=== PATIENT | male | born 1960 | race Caucasian/White ===

== ENCOUNTER 2019-06-29 14:23 | Emergency (ER) | payer MEDICARE ==
[~2019-06-29] VITALS: Ht 188 cm; Wt 90.0 kg
[~2019-06-29 14:23] MED LIST: BACTRIM DS1 TAB PO; CEPHALEXIN500 MG OR; CEPHALEXIN500 MG PO; NO; NORCO1 TA1 PO
[2019-06-29 15:21] LABS: URINE BILIRUBIN - DIPSTICK NEGATIVE (NEGATIVE); URINE BLOOD DIPSTICK LARGE (NEGATIVE); URINE COLOR YELLOW; URINE GLUCOSE - DIPSTICK NEGATIVE (NEGATIVE); URINE KETONE NEGATIVE (NEGATIVE); URINE PROTEIN - DIPSTICK 100 mg/dL (NEG-TRACE); URINE SPECIFIC GRAVITY >=1.030
[2019-06-29 15:29] LABS: URINE LEUK ESTERASE MODERATE (NEGATIVE); URINE NITRITE - DIPSTICK POSITIVE (Negative)
[2019-06-29 15:31] LABS: URINE BACTERIA FEW hpf; URINE RBC TNTC RBC/hpf (0-5); URINE SQUAMOUS EPITHELIAL CELL FEW EPI/hpf (0-FEW)
[2019-06-29] MEDS ORDERED: KEFLEX500 M1 PO (15:48)
[2019-06-29 15:57] VITALS: BP 142/78
== END 2019-06-29 15:57 | disposition home or self-care (01) ==
LOC: ED 14:23
PROVIDERS: Emergency Medicine
DX: N39.0 Urinary tract infection, site not specified (principal); B96.20 Unspecified Escherichia coli [E. coli] as the cause of diseases classified elsewhere

== ENCOUNTER 2019-09-01 16:58 | Emergency (ER) | payer MEDICARE ==
[~2019-09-01] VITALS: Ht 188 cm; Wt 82.0 kg
[~2019-09-01 16:58] MED LIST changes: +KEFLEX500 M1 PO
[2019-09-01] MEDS ORDERED: CEPHALEXIN500 MG PO (19:09)
[2019-09-01] MEDS ORDERED: BACTRIM DS1 TAB PO (19:09)
[2019-09-01 19:20] VITALS: BP 129/74
== END 2019-09-01 19:20 | disposition home or self-care (01) ==
LOC: ED 16:58
DX: L01.00 Impetigo, unspecified (principal); F17.210 Nicotine dependence, cigarettes, uncomplicated; B95.1 Streptococcus, group B, as the cause of diseases classified elsewhere

== ENCOUNTER 2019-11-25 | Emergency (ER) | payer MEDICARE ==
[2019-11-25] MEDS ORDERED: ZPAK PO (15:13)
[2019-11-25] MEDS ORDERED: ACETAMINOP160 MG/5 M PO (15:13)
[2019-11-25 15:57] LABS: URINE BLOOD DIPSTICK TRACE-INTACT (NEGATIVE); URINE COLOR YELLOW; URINE GLUCOSE - DIPSTICK NEGATIVE (NEGATIVE); URINE KETONE TRACE mg/dL (NEGATIVE); URINE LEUK ESTERASE NEGATIVE (NEGATIVE); URINE NITRITE - DIPSTICK NEGATIVE (Negative); URINE PROTEIN - DIPSTICK 30 mg/dL (NEG-TRACE); URINE SPECIFIC GRAVITY >=1.030
[2019-11-25 15:59] LABS: URINE BILIRUBIN - DIPSTICK SMALL (NEGATIVE)
[2019-11-25 16:00] LABS: URINE EPITHELIAL CELLS FEW EPI/hpf (0-FEW); URINE MUCUS MODERATE hpf (NONE-FEW); URINE RBC 0-2 RBC/hpf (0-5)
[2019-11-25 18:21] LABS: BARBITURATES NEGATIVE (NEGATIVE); COCAINE NEGATIVE (NEGATIVE); METHADONE NEGATIVE (NEGATIVE); OXCYCODONE NEGATIVE (NEGATIVE); TETRAHYDROCANNABIONOL NEGATIVE (NEGATIVE); TRICYLIC ANTIDEPRESSANTS NEGATIVE (NEGATIVE)
[2019-11-26] MEDS ORDERED: AMOXICILLIN875 MG PO (11:42)
== END 2019-11-25 18:32 | disposition home or self-care (01) ==
DX: J02.0 Streptococcal pharyngitis (principal); F17.210 Nicotine dependence, cigarettes, uncomplicated; F19.90 Other psychoactive substance use, unspecified, uncomplicated; Z59.0 Homelessness

== ENCOUNTER 2019-12-01 15:55 | Inpatient (IN) | payer MEDICARE ==
[~2019-12-01] VITALS: Ht 188 cm; Wt 79.0 kg
[~2019-12-01 15:55] MED LIST changes: +ACETAMINOP160 MG/5 M PO; +AMOXICILLIN875 MG PO; +ZPAK PO
--- NOTE | 2019-12-01 16:12 | NUR ---
PT TO ROOM PER SULEMAN RUST FOR CONTINKUATION OF CARE PER W/C
[2019-12-01 17:00] LABS: IMMATURE GRANULOCYTES 0.4 % (0.0-5.0); MEAN CORPUSCULAR HGB 31.1 pG CALC (26.0-32.0); MEAN CORPUSCULAR HGB CONC 32.1 g/L CALC (32.0-36.0); NEUT# 4.28 thou/uL (1.82-7.42); RED BLOOD COUNT 3.28 mill/uL (4.70-6.10); RED CELL DISTRI WIDTH 13.4 % (11.5-15.5)
[2019-12-01 17:02] LABS: HEMATOCRIT 31.8 % (39.0-50.0); HEMOGLOBIN 10.2 g/dl (14.0-18.0)
[2019-12-01 17:28] LABS: ALBUMIN 3.6 g/dL (3.2-5.0); ALKALINE PHOSPHATASE 80 u/l (38-126); ANION GAP 13 (6-22 (CALC)); BUN 16 mg/dL (8-23); BUN/CREATININE RATIO 18 (12-20 (CALC)); CARBON DIOXIDE 26 mmol/l (22-30); CHLORIDE 105 mmol/l (95-108); CREATININE 0.9 mg/dL (0.7-1.3); ETHYL ALCOHOL 0 mg/dl (0-30); GFR > 60 ML/MIN (>=60 (CALC)); GFR FOR AFR.AMER. > 60 ML/MIN (>=60 (CALC)); POTASSIUM 4.2 mmol/l (3.5-5.1); SGOT/AST 27 u/l (19-48); SODIUM 140 mmol/l (137-146); TOTAL PROTEIN 7.6 g/dL (6.3-8.2)
[2019-12-01 17:29] LABS: BILIRUBIN, TOTAL 0.2 mg/dL (0.0-1.4)
--- NOTE | 2019-12-01 18:00 | NUR ---
PT RESTING QUIETLY ON STRETCHER, FRIEND AT BEDSIDE, NO DISTRESS NOTED, NO COUGHING HEARD SINCE ARRIVAL. VSS.
--- NOTE | 2019-12-01 18:10 | NUR ---
FRIENDS NUMBER TO [facility] [employer] WHEN DISCHARGED IS [phone] NAME IS JAMILA
--- NOTE | 2019-12-01 19:00 | NUR ---
WAITING FOR ADMISSION BED, PT IS EATING A SANDWICH AND DRINK. NO DISTRESS NOTED.
[2019-12-01 19:40] VITALS: BP 132/81
--- NOTE | 2019-12-01 19:40 | NUR ---
PT ARRIVED TO THE FLOOR VIA STRETCHER ACCOMPANIED BY ED STAFF, PT AMBULATED FROM STRETCHER TO BED. ALERT AND ORIENTED. RESPIRATIONS EVEN AND UNLABORED ON RA. PEDAL PULSES WERE WEAK. PT DENIES ANY PAIN OR DISCOMFORT AT THIS TIME. TELE IN PLACE. PT PROVIDED WITH A DRINK AND SNACK. PT ORIENTED TO ROOM AND CALL [employer]. WILL CONTINUE TO MONITOR.
--- NOTE | 2019-12-01 19:41 | NUR ---
PT REPORT GIVEN AND PT TAKEN TO FLOOR PER STRETCHER.
--- NOTE | 2019-12-01 23:04 | NUR ---
PT RESTING IN BED, NO S/S OF DISTRESS AT THIS TIME. WILL CONTINUE TO MONITOR.
[2019-12-01 23:36] VITALS: BP 122/70
--- NOTE | 2019-12-02 04:05 | NUR ---
PT RESTING IN BED. RESPIRATIONS EVEN AND UNLABORED ON RA. NO S/S OF DISTRESS AT THIS TIME. WILL CONTINUE TO MONITOR.
[2019-12-02 04:34] VITALS: BP 135/76
[2019-12-02 05:42] LABS: HEMATOCRIT 33.6 % (39.0-50.0); HEMOGLOBIN 10.7 g/dl (14.0-18.0); IMMATURE GRANULOCYTES 0.5 % (0.0-5.0); MEAN CELL VOLUME 97.4 fL CALC (80.0-100.0); MEAN CORPUSCULAR HGB CONC 31.8 g/L CALC (32.0-36.0); NEUT# 7.26 thou/uL (1.82-7.42); RED BLOOD COUNT 3.45 mill/uL (4.70-6.10); RED CELL DISTRI WIDTH 13.2 % (11.5-15.5)
[2019-12-02 06:14] LABS: BUN 14 mg/dL (8-23); BUN/CREATININE RATIO 18 (12-20 (CALC)); CARBON DIOXIDE 26 mmol/l (22-30); CHLORIDE 105 mmol/l (95-108); CREATININE 0.8 mg/dL (0.7-1.3); GFR > 60 ML/MIN (>=60 (CALC)); GFR FOR AFR.AMER. > 60 ML/MIN (>=60 (CALC)); SODIUM 138 mmol/l (137-146)
[2019-12-02 06:26] LABS: ANION GAP 12 (6-22 (CALC)); POTASSIUM 5.2 mmol/l (3.5-5.1)
[2019-12-02 08:50] VITALS: BP 121/70
--- NOTE | 2019-12-02 08:50 | NUR ---
ASSESSMENT IS COMPLETED: IV SITE IS FREE FROM REDNESS OR EDEMA. HR IS REG,PULSES ARE STRONG X4, ABD IS SOFT WITH ACTIVE BS, BREATH SOUNDS ARE DIMINISHED , COARSE AND CLEAR, NO DISTRESS NOTED. TELE MONITOR IN PLACE. NO O2 IN PLACE.
--- NOTE | 2019-12-02 12:15 | NUR ---
PT IS RELAXING IN BED WITH NO DISTRESS NTOED. IV SITE IS FREE FROM REDNESS OR EDEMA.
[2019-12-02 12:17] VITALS: BP 125/67
--- NOTE | 2019-12-02 13:00 | NUR ---
PT TRANSPORTED TO HAVE AN CT COMPLETED VIA WC WITH STAFF. IV SITE IS FREE FROM REDNESS OR EDEMA.
[2019-12-02 15:35] VITALS: BP 139/71
--- NOTE | 2019-12-02 16:00 | NUR ---
PT IS RELAXING IN BED WITH NO DISTRESS NTOED. IV SITE IS FREE FROM REDNESS OR EDEMA.
[2019-12-02 19:40] VITALS: BP 134/68
--- NOTE | 2019-12-02 20:00 | NUR ---
PT RESTING IN BED, NO SIGNS OF DISTRESS NOTED, RESP EVEN AND UNLABORED. DISCUSSED POC PT ALERT AND ORIENTED X3, ASSESSMENT COMPLETED. OLDER ADULT SOCIAL WORK SPECIALIST COUGH NOTED. CALL LIGHT IN REACH,CONTINUE TO MONITOR.
--- NOTE | 2019-12-02 20:20 | NUR ---
PT TAKEN DOWN TO RADIOLOGY FOR CT SCAN, TAKEN VIA WHEELCHAIR ACCOMPANIED BY MIXER CRANE OPERATOR.
--- NOTE | 2019-12-02 21:12 | NUR ---
PT RESTING IN BED, ENCOURAGED PT TO USE URINAL TO MEASURE OUTPUT AND OBTAIN SPECIMEN. CALL LIGHT IN REACH,CONTINUE TO MONITOR.
--- NOTE | 2019-12-02 22:27 | NUR ---
PT RESTING IN BED, URINE SPECIMEN OBTAINED FROM URINAL. PT VOICES NO NEEDS OR COMPLAINTS AT THIS TIME. CALL LIGHT IN REACH,CONTINUE TO MONITOR.
--- NOTE | 2019-12-02 23:43 | NUR ---
SOLUMEDROL GIVEN, PT TOLERATED WELL, VOICES NO NEEDS OR COMPLAINTS AT THIS TIME. CALL LIGHT IN REACH,CONTINUE TO MONITOR.
[2019-12-03 00:16] VITALS: BP 121/61
[2019-12-03 00:25] LABS: URINE BILIRUBIN - DIPSTICK NEGATIVE (NEGATIVE); URINE BLOOD DIPSTICK NEGATIVE (NEGATIVE); URINE COLOR YELLOW; URINE GLUCOSE - DIPSTICK NEGATIVE (NEGATIVE); URINE KETONE NEGATIVE (NEGATIVE); URINE LEUK ESTERASE NEGATIVE (NEGATIVE); URINE NITRITE - DIPSTICK NEGATIVE (Negative); URINE PH 5.5 (4.5-8.0); URINE PROTEIN - DIPSTICK NEGATIVE (NEG-TRACE); URINE UROBILINOGEN - DIPSTICK 0.2 E.U./dL (0.2)
[2019-12-03 01:34] LABS: BARBITURATES NEGATIVE (NEGATIVE); COCAINE NEGATIVE (NEGATIVE); METHADONE NEGATIVE (NEGATIVE); OXCYCODONE NEGATIVE (NEGATIVE); TETRAHYDROCANNABIONOL NEGATIVE (NEGATIVE); TRICYLIC ANTIDEPRESSANTS NEGATIVE (NEGATIVE)
--- NOTE | 2019-12-03 03:26 | NUR ---
PT RESTING IN BED, WITH EYES CLOSED, NO SIGNS OF DISTRESS NOTED. CALL LIGHT IN REACH, CONTINUE TO MONITOR.
[2019-12-03 04:51] VITALS: BP 118/67
--- NOTE | 2019-12-03 06:16 | NUR ---
SOLUMEDROL GIVEN, PT VOICES NO NEEDS OR COMPLAINTS, CALL LIGHT IN REACH,CONTINUE TO MONITOR.
--- NOTE | 2019-12-03 07:29 | NUR ---
REPORT RECEIVED FROM URIAH ANGEL. PT SUPINE IN BED. DENIES PAIN. REPORTING OF CONCERNS ENCOURAGED. CALL LIGHT REVIEWED AND IN REACH. PT STATES UNDERSTANDING.
[2019-12-03 08:59] VITALS: BP 119/69
--- NOTE | 2019-12-03 09:58 | NUR ---
PLAN OF CARE REVIEWED WITH PT. INCENTIVE SPIROMETER PROVIDED. PT INSTRUCTED ON USE AND INDICATION. 1000 ML INCENTIVE VOLUME ACHIEVED. GOAL OF 1500 ML SET. INFLUENZA VACCINE DISCUSSED. PT. CONSENT TO VACCINE. ADMINISTERED IN RIGHT DELTOID. PT TOLERATED WELL. CONSENT FOR PNEUMONIA VACCINE DISCUSSED. PT AGREES TO THIS ALSO, PHARMACY NOTIFIED.
--- NOTE | 2019-12-03 14:00 | NUR ---
DR. GIRON IN TO SEE PT. PLAN OF CARE UPDATED. PT STATES UNDERSTANDING.
[2019-12-03 15:40] VITALS: BP 132/65
--- NOTE | 2019-12-03 17:48 | NUR ---
PT SITTING UPRIGHT IN BED. I.S. USE ENCOURAGED. PT STATES UNDERSTANDING.
[2019-12-03 19:06] VITALS: BP 129/59
--- NOTE | 2019-12-03 21:05 | NUR ---
PT MEDICATED ORDERS PROVIDE AND ASSESSMENT COMPLETED AT THIS TIME. NO S/O DISTRESS NOTED. PT DENIES ANY NEEDS AND WAS SLEEPING WHEN I ENTERED, BUT AWOKE TO MY VOICE. PT ENCOUARGED TO CALL NEEDS ARISE. CALL LIGHT W/IN REACH.
[2019-12-04 00:05] VITALS: BP 118/65
--- NOTE | 2019-12-04 02:24 | NUR ---
PT IS SLEEPING, NO S/O DISTRESS NOTED.
[2019-12-04 04:20] VITALS: BP 134/76
[2019-12-04 05:45] LABS: HEMATOCRIT 33.9 % (39.0-50.0); HEMOGLOBIN 10.7 g/dl (14.0-18.0); MEAN CORPUSCULAR HGB 30.9 pG CALC (26.0-32.0); MEAN CORPUSCULAR HGB CONC 31.6 g/L CALC (32.0-36.0); RED BLOOD COUNT 3.46 mill/uL (4.70-6.10); RED CELL DISTRI WIDTH 13.3 % (11.5-15.5)
--- NOTE | 2019-12-04 06:32 | NUR ---
PT MEDICATED ORDERS PROVIDE. PT WAS SLEEPING, BUT AWOKE TO MY VOICE. DENIES ANY OTHER NEEDS AT THIS TIME.
[2019-12-04 08:10] VITALS: BP 139/68
--- NOTE | 2019-12-04 08:10 | NUR ---
ASSESSMENT IS COMPLETED: IV SITE IS FREE FROM REDNESS OR EDEMA. HR IS REG,PULSES ARE STRONG X4, ABD IS SOFT WITH ACTIVE BS. BREATH SOUNDS ARE CLEAR AN DIMINISHED WITH SOME COARSENESS. TELE MONITOR IN PLACE. CONTINUE TO OBSERVE AND MONITOR.
[2019-12-04 10:36] VITALS: BP 159/67
--- NOTE | 2019-12-04 12:30 | NUR ---
PT IS RELAXING IN BED WITH NO DISTRESS NOTED , IV SITE IS FREE FROM REDNESS OR EDEMA. CONTINUE TO OSBERVE AND MONITOR.
[2019-12-04] MEDS ORDERED: ZPAK PO (13:37)
[2019-12-04 14:32] LABS: ALBUMIN 3.3 g/dL (3.2-5.0); ALKALINE PHOSPHATASE 65 u/l (38-126); ANION GAP 11 (6-22 (CALC)); BILIRUBIN, TOTAL 0.2 mg/dL (0.0-1.4); BUN 21 mg/dL (8-23); BUN/CREATININE RATIO 23 (12-20 (CALC)); CARBON DIOXIDE 28 mmol/l (22-30); CHLORIDE 104 mmol/l (95-108); CREATININE 0.9 mg/dL (0.7-1.3); GFR > 60 ML/MIN (>=60 (CALC)); GFR FOR AFR.AMER. > 60 ML/MIN (>=60 (CALC)); POTASSIUM 4.5 mmol/l (3.5-5.1); SGOT/AST 23 u/l (19-48); SODIUM 139 mmol/l (137-146); TOTAL PROTEIN 6.8 g/dL (6.3-8.2)
--- NOTE | 2019-12-04 15:15 | NUR ---
IV SITE DISCONTINUED CATHTER INTACT. NO REDNESS OR EDEMA. DISCHARGE INSTRUCTIONS GIVEN AND VERBALIZED UNDERSTANDING. WITH TEACHING MATERIALS., Discharge instructions given. Patient verbalizes understanding of same. Discharged in stable condition via Wheelchair to Home with family. All belongings sent with pt.
== END 2019-12-04 16:05 | disposition home or self-care (01) | DRG 195 ==
LOC: ED 15:55 → ED-I 17:40 → MS2 17:52 → ED 17:52 → MS2 12-02 14:54
PROVIDERS: Nurse Practitioner Family; ADMIT Internal Medicine; ATTEND Internal Medicine
PROC: 3E02340 Introduction of Influenza Vaccine into Muscle, Percutaneous Approach (ICD-10-PCS; principal; 2019-12-03)
PROC: 3E0234Z Introduction of Serum, Toxoid and Vaccine into Muscle, Percutaneous Approach (ICD-10-PCS; 2019-12-03)
DX: J18.9 Pneumonia, unspecified organism (principal); F17.200 Nicotine dependence, unspecified, uncomplicated; F31.9 Bipolar disorder, unspecified; Z59.0 Homelessness; Z23 Encounter for immunization
CPT/HCPCS: G0378; J1650; Q9967

== ENCOUNTER 2024-07-10 11:11 | Emergency (ER) | payer MEDICARE ==
[2024-07-10] VITALS (14 sets, daily range): BP systolic 160–179; BP diastolic 90–109
[~2024-07-10] VITALS: Ht 188 cm; Wt 83.9 kg
[2024-07-10 13:06] LABS: URINE BLOOD DIPSTICK Negative (NEGATIVE); URINE GLUCOSE - DIPSTICK Negative (NEGATIVE); URINE KETONE >=160 mg/dL (NEGATIVE); URINE LEUK ESTERASE Negative (NEGATIVE); URINE NITRITE - DIPSTICK Negative (Negative); URINE PROTEIN - DIPSTICK 30 mg/dL (NEG-TRACE); URINE SPECIFIC GRAVITY >=1.030
[2024-07-10 13:09] LABS: URINE COLOR Yellow
[2024-07-10 13:13] LABS: URINE SPERM FEW hpf (NONE-RARE); URINE WBC 0-2 WBC/hpf (0-5)
[2024-07-10 14:29] LABS: BASO% 0.2 % (0-3); EOS% 2.4 % (0-8); HEMATOCRIT 45.5 % (39.0-50.0); HEMOGLOBIN 15.1 g/dl (14.0-18.0); IMMATURE GRANULOCYTES 0.3 % (0.0-5.0); LYMPH% 15.8 % (15-41); MEAN CELL VOLUME 111.8 fL CALC (80.0-100.0); MEAN CORPUSCULAR HGB 37.1 pG CALC (26.0-32.0); MEAN CORPUSCULAR HGB CONC 33.2 g/dL CAL (32.0-36.0); MONO% 9.4 % (2-13); NEUT# 4.51 thou/uL (1.82-7.42); NEUT% 71.9 % (42-76); RED BLOOD COUNT 4.07 mill/uL (4.70-6.10); RED CELL DISTRI WIDTH 14.5 % (11.5-15.5)
[2024-07-10 14:40] LABS: ALKALINE PHOSPHATASE 87 u/l (38-126); AMYLASE 51 u/l (30-110); ANION GAP 8 (6-22 (CALC)); BUN 17 mg/dL (8-23); BUN/CREATININE RATIO 17 (12-20 (CALC)); CARBON DIOXIDE 27 mmol/l (22-30); CHLORIDE 106 mmol/l (95-108); ESTIMATED GFR 83 ML/MIN (>=90 (CALC)); LIPASE 117 u/l (23-300); POTASSIUM 4.8 mmol/l (3.5-5.1); SODIUM 137 mmol/l (137-146); TOTAL PROTEIN 7.3 g/dL (6.3-8.2)
[2024-07-10 14:41] LABS: ALBUMIN 4.4 g/dL (3.2-5.0); BILIRUBIN, TOTAL 1.1 mg/dL (0.2-1.3); SGOT/AST 93 u/l (19-48)
[2024-07-10] MEDS ORDERED: LIBRIUM25 MG PO (17:02)
== END 2024-07-10 17:52 | disposition home or self-care (01) ==
LOC: ED 11:11
PROVIDERS: Family Medicine; Nurse Practitioner Family
DX: R10.84 Generalized abdominal pain (principal); R74.8 Abnormal levels of other serum enzymes; R14.0 Abdominal distension (gaseous); F10.90 Alcohol use, unspecified, uncomplicated; F31.9 Bipolar disorder, unspecified; F20.9 Schizophrenia, unspecified; F17.200 Nicotine dependence, unspecified, uncomplicated
CPT/HCPCS: Q9967